=== PATIENT | female | born 1940 | race Caucasian/White ===

== ENCOUNTER 2021-10-02 15:10 | Inpatient (IN) ==
[2021-10-02] MEDS ORDERED: *HR* OxyCODONE/APAP 5/325 TABLET PO SCH (15:15)
[2021-10-02] MEDS ORDERED: Ipratropium/Albuterol Neb 3 ML IH PRN (15:56)
[2021-10-02] MEDS: Acetaminophen 325 MG TABLET PO PRN (18:03)
[2021-10-02] MEDS: Pyridostigmine Br 60 MG TABLET PO SCH ×2 (18:03→22:10)
[2021-10-02] MEDS: Apixaban 5 MG TABLET PO SCH (22:10)
[2021-10-02] MEDS: allopurinoL 100 MG TABLET PO SCH (22:11)
[2021-10-02] MEDS: Melatonin 3 MG TABLET PO SCH (22:11)
[2021-10-02] MEDS: *HR* OxyCODONE/APAP 5/325 TABLET PO PRN (22:11)
[2021-10-02] MEDS: polyethylene glycoL 3350 17 GM POWD.PACK PO PRN (22:57)
[2021-10-03] MEDS: Ondansetron ODT 4 MG TAB.RAPDIS SL PRN (04:25)
[2021-10-03] MEDS: *HR* OxyCODONE/APAP 5/325 TABLET PO PRN (05:51)
[2021-10-03 06:52] LABS: Basophils # 0.1 K/mcL (0.0-0.2); Basophils % 0.4 %; Eosinophils # 0.1 K/mcL (0.0-0.6); Eosinophils % 0.7 %; Hematocrit 39.2 % (35.3-44.9); Hemoglobin 12.7 g/dL (11.5-15.4); Immature Granulocytes % 0.3 % (0-4); Lymphocytes # 11.6 K/mcL (0.6-4.6); Lymphocytes % 60.5 %; Mean Corpuscular HGB Conc 32.4 g/dL (31.6-35.5); Mean Corpuscular Hemoglobin 31.4 pg (28.0-33.3); Mean Platelet Volume 9.7 fL (9.4-12.4); Monocytes # 0.5 K/mcL (0.0-1.3); Monocytes % 2.4 %; Neutrophils # 6.9 K/mcL (1.6-8.9); Platelet Count 227 K/mcL (140-400); Red Blood Count 4.04 M/mcL (3.82-4.97); Red Cell Distribution Width 13.4 % (11.5-14.5); Segmented Neutrophils % 35.7 %; White Blood Count 19.2 K/mcL (4.3-11.1)
[2021-10-03] MEDS: DilTIAZem CD (24hr) 120 MG CAP.ER.24H PO SCH (08:23)
[2021-10-03] MEDS: lisinopriL 10 MG TABLET PO SCH (08:24)
[2021-10-03] MEDS: allopurinoL 100 MG TABLET PO SCH ×2 (08:24→21:17)
[2021-10-03] MEDS: Cholecalciferol (D-3) 1,000 UNIT (25MCG) TABLET PO SCH (08:24)
[2021-10-03] MEDS: Cyanocobalamin (B-12) 1,000 MCG TABLET PO SCH (08:25)
[2021-10-03] MEDS: Apixaban 5 MG TABLET PO SCH ×2 (08:25→21:18)
[2021-10-03] MEDS: Pyridostigmine Br 60 MG TABLET PO SCH ×4 (08:25→21:18)
[2021-10-03] MEDS: Multivit/Ca/Min/Fe/FA 1 TAB TABLET PO SCH (08:25)
[2021-10-03 09:16] LABS: BUN/Creatinine Ratio 20 (6-26); Blood Urea Nitrogen 19 mg/dL (8-23); Carbon Dioxide 34 mEq/L (23-29); Chloride 93 mEq/L (98-107); Glucose 132 mg/dL (70-105); Magnesium 2.1 mg/dL (1.6-2.6); Osmolality,Calculated 280 (280-300); Potassium 4.7 mEq/L (3.5-5.1); Sodium 133 mEq/L (136-145); eGFR For African Americans > 60 (> 60); eGFR For Non-African Americans 56 (> 60)
[2021-10-03] MEDS: polyethylene glycoL 3350 17 GM POWD.PACK PO PRN (16:24)
[2021-10-03] MEDS ORDERED: Bisacodyl 10 MG RECTAL SUPPOSITORY RC PRN (19:33)
[2021-10-03] MEDS: Melatonin 3 MG TABLET PO SCH (21:17)
[2021-10-03] MEDS: diazePAM 5 MG TABLET PO PRN (21:18)
[2021-10-03] MEDS: Sennosides/Docusate Sodium TABLET PO SCH (21:18)
[2021-10-04] MEDS: *HR* OxyCODONE/APAP 5/325 TABLET PO PRN ×2 (05:44→23:24)
[2021-10-04] MEDS: Cholecalciferol (D-3) 1,000 UNIT (25MCG) TABLET PO SCH (08:00)
[2021-10-04] MEDS: Pyridostigmine Br 60 MG TABLET PO SCH ×4 (08:00→20:49)
[2021-10-04] MEDS: Sennosides/Docusate Sodium TABLET PO SCH ×2 (08:00→20:50)
[2021-10-04] MEDS: lisinopriL 10 MG TABLET PO SCH (08:00)
[2021-10-04] MEDS: Cyanocobalamin (B-12) 1,000 MCG TABLET PO SCH (08:00)
[2021-10-04] MEDS: allopurinoL 100 MG TABLET PO SCH ×2 (08:00→20:50)
[2021-10-04] MEDS: DilTIAZem CD (24hr) 120 MG CAP.ER.24H PO SCH (08:00)
[2021-10-04] MEDS: Multivit/Ca/Min/Fe/FA 1 TAB TABLET PO SCH (08:00)
[2021-10-04] MEDS: Apixaban 5 MG TABLET PO SCH ×2 (08:00→20:50)
[2021-10-04] MEDS: polyethylene glycoL 3350 17 GM POWD.PACK PO PRN (08:04)
[2021-10-04 15:20] LABS: ABG Base Excess 5 mEq/L (-2 to 3); ABG HCO3 31 mEq/L (21-27); ABG Oxygen Saturation 82 % (95-98); ABG PCO2 49 mmHg (35-45); ABG PO2 47 mmHg (85-104); ABG TCO2 32 mEq/L (20-26)
[2021-10-04] MEDS: acetaZOLAMIDE 250 MG TABLET PO SCH (20:50)
[2021-10-04] MEDS: Melatonin 3 MG TABLET PO SCH (20:50)
[2021-10-04] MEDS: Doxycycline 100 MG CAPSULE PO SCH (20:50)
[2021-10-04] MEDS: Ibuprofen 600 MG TABLET PO PRN (20:57)
[2021-10-05] MEDS: diazePAM 5 MG TABLET PO PRN ×2 (01:15→22:39)
[2021-10-05] MEDS: Acetaminophen 325 MG TABLET PO PRN (01:15)
[2021-10-05 05:57] LABS: Hematocrit 38.7 % (35.3-44.9); Hemoglobin 12.2 g/dL (11.5-15.4); Mean Corpuscular HGB Conc 31.5 g/dL (31.6-35.5); Mean Corpuscular Hemoglobin 31.1 pg (28.0-33.3); Mean Corpuscular Volume 98.7 fL (83.0-100.0); Platelet Count 251 K/mcL (140-400); Red Blood Count 3.92 M/mcL (3.82-4.97); Red Cell Distribution Width 13.5 % (11.5-14.5); White Blood Count 23.8 K/mcL (4.3-11.1)
[2021-10-05 06:14] LABS: Albumin 3.7 g/dL (3.5-5.7); Albumin/Globulin Ratio 1.5 (1.1-2.2); Bilirubin,Total 0.6 mg/dL (0.3-1.0); Calcium 8.7 mg/dL (8.6-10.3); Globulin 2.4 g/dL (2.4-3.5); Magnesium 2.2 mg/dL (1.6-2.6); Total Protein 6.1 g/dL (6.4-8.9)
[2021-10-05] MEDS: DilTIAZem CD (24hr) 120 MG CAP.ER.24H PO SCH (07:41)
[2021-10-05] MEDS: Ibuprofen 600 MG TABLET PO PRN ×3 (07:41→22:39)
[2021-10-05] MEDS: Doxycycline 100 MG CAPSULE PO SCH ×2 (07:41→21:19)
[2021-10-05] MEDS: lisinopriL 10 MG TABLET PO SCH (07:41)
[2021-10-05] MEDS: Apixaban 5 MG TABLET PO SCH ×2 (07:42→21:18)
[2021-10-05] MEDS: Cholecalciferol (D-3) 1,000 UNIT (25MCG) TABLET PO SCH (07:42)
[2021-10-05] MEDS: Multivit/Ca/Min/Fe/FA 1 TAB TABLET PO SCH (07:42)
[2021-10-05] MEDS: Cyanocobalamin (B-12) 1,000 MCG TABLET PO SCH (07:42)
[2021-10-05] MEDS: Pyridostigmine Br 60 MG TABLET PO SCH ×4 (07:42→21:19)
[2021-10-05] MEDS: allopurinoL 100 MG TABLET PO SCH ×2 (07:43→21:18)
[2021-10-05] MEDS: acetaZOLAMIDE 250 MG TABLET PO SCH ×2 (07:43→21:19)
[2021-10-05] MEDS: Sennosides/Docusate Sodium TABLET PO SCH ×2 (10:01→21:18)
[2021-10-05] MEDS: polyethylene glycoL 3350 17 GM POWD.PACK PO PRN (11:41)
[2021-10-05 15:51] LABS: Bilirubin,Urine Negative (Negative); Blood,Urine Trace-lysed (Negative); Clarity,Urine Cloudy (Clear); Color,Urine Yellow (Yellow); Glucose,Urine (UA) Normal (Normal); Ketones,Urine Negative (Negative); Leukocyte Esterase,Urine Large (Negative); Nitrite,Urine Negative (Negative); PH,Urine 8.5 pH Units (5.0-8.0); Protein,Urine Trace mg/dL (Neg-Trace); Specific Gravity,Urine 1.015 (1.010-1.025); Urobilinogen,Urine Normal (Normal)
[2021-10-05 15:53] LABS: Bacteria,Urine Moderate per hpf (None-Few); Squamous Epithelial Cell,Urine Moderate per hpf (None-Few); WBC,Urine 30-50 per hpf (0-3)
[2021-10-05] MEDS: *HR* OxyCODONE/APAP 5/325 TABLET PO PRN (21:18)
[2021-10-05] MEDS: Melatonin 3 MG TABLET PO SCH (21:19)
[2021-10-06 04:58] LABS: Hemoglobin 12.2 g/dL (11.5-15.4); Mean Corpuscular HGB Conc 31.3 g/dL (31.6-35.5); Mean Corpuscular Volume 99.2 fL (83.0-100.0); Mean Platelet Volume 9.9 fL (9.4-12.4); Platelet Count 260 K/mcL (140-400); Red Blood Count 3.93 M/mcL (3.82-4.97); Red Cell Distribution Width 13.4 % (11.5-14.5); White Blood Count 23.2 K/mcL (4.3-11.1)
[2021-10-06 05:18] LABS: Albumin 3.6 g/dL (3.5-5.7); Albumin/Globulin Ratio 1.6 (1.1-2.2); Bilirubin,Total 0.3 mg/dL (0.3-1.0); Calcium 8.7 mg/dL (8.6-10.3); Globulin 2.3 g/dL (2.4-3.5); Magnesium 2.3 mg/dL (1.6-2.6); Potassium 4.1 mEq/L (3.5-5.1); Total Protein 5.9 g/dL (6.4-8.9)
[2021-10-06] MEDS: Doxycycline 100 MG CAPSULE PO SCH ×2 (08:47→20:36)
[2021-10-06] MEDS: Sennosides/Docusate Sodium TABLET PO SCH ×2 (08:48→20:37)
[2021-10-06] MEDS: Pyridostigmine Br 60 MG TABLET PO SCH ×4 (08:48→20:36)
[2021-10-06] MEDS: lisinopriL 10 MG TABLET PO SCH (08:48)
[2021-10-06] MEDS: Apixaban 5 MG TABLET PO SCH ×2 (08:48→20:37)
[2021-10-06] MEDS: Multivit/Ca/Min/Fe/FA 1 TAB TABLET PO SCH (08:49)
[2021-10-06] MEDS: allopurinoL 100 MG TABLET PO SCH ×2 (08:49→20:36)
[2021-10-06] MEDS: DilTIAZem CD (24hr) 120 MG CAP.ER.24H PO SCH (08:49)
[2021-10-06] MEDS: acetaZOLAMIDE 250 MG TABLET PO SCH ×2 (08:49→20:37)
[2021-10-06] MEDS: Cholecalciferol (D-3) 1,000 UNIT (25MCG) TABLET PO SCH (08:52)
[2021-10-06] MEDS: Cyanocobalamin (B-12) 1,000 MCG TABLET PO SCH (08:52)
[2021-10-06] MEDS: Ibuprofen 600 MG TABLET PO PRN (15:05)
[2021-10-06] MEDS: *HR* OxyCODONE/APAP 5/325 TABLET PO PRN (19:25)
[2021-10-06] MEDS: Melatonin 3 MG TABLET PO SCH (20:36)
[2021-10-07] MEDS: diazePAM 5 MG TABLET PO PRN ×2 (02:30→21:27)
[2021-10-07] MEDS: Acetaminophen 325 MG TABLET PO PRN (08:43)
[2021-10-07] MEDS: Multivit/Ca/Min/Fe/FA 1 TAB TABLET PO SCH (08:43)
[2021-10-07] MEDS: Pyridostigmine Br 60 MG TABLET PO SCH ×4 (08:43→21:17)
[2021-10-07] MEDS: allopurinoL 100 MG TABLET PO SCH ×2 (08:43→21:18)
[2021-10-07] MEDS: Cholecalciferol (D-3) 1,000 UNIT (25MCG) TABLET PO SCH (08:43)
[2021-10-07] MEDS: Cyanocobalamin (B-12) 1,000 MCG TABLET PO SCH (08:43)
[2021-10-07] MEDS: Apixaban 5 MG TABLET PO SCH ×2 (08:43→21:18)
[2021-10-07] MEDS: Sennosides/Docusate Sodium TABLET PO SCH ×2 (08:43→21:18)
[2021-10-07] MEDS: Doxycycline 100 MG CAPSULE PO SCH ×2 (08:44→21:18)
[2021-10-07] MEDS: DilTIAZem CD (24hr) 120 MG CAP.ER.24H PO SCH (08:44)
[2021-10-07] MEDS: lisinopriL 10 MG TABLET PO SCH (08:44)
[2021-10-07] MEDS: acetaZOLAMIDE 250 MG TABLET PO SCH (08:44)
[2021-10-07] MEDS: *HR* OxyCODONE/APAP 5/325 TABLET PO PRN (17:05)
[2021-10-07] MEDS: Melatonin 3 MG TABLET PO SCH (21:17)
[2021-10-08 05:54] LABS: Hematocrit 36.5 % (35.3-44.9); Hemoglobin 11.8 g/dL (11.5-15.4); Mean Corpuscular HGB Conc 32.3 g/dL (31.6-35.5); Mean Corpuscular Hemoglobin 31.5 pg (28.0-33.3); Mean Corpuscular Volume 97.3 fL (83.0-100.0); Mean Platelet Volume 9.6 fL (9.4-12.4); Platelet Count 304 K/mcL (140-400); Red Blood Count 3.75 M/mcL (3.82-4.97); Red Cell Distribution Width 13.8 % (11.5-14.5); White Blood Count 24.3 K/mcL (4.3-11.1)
[2021-10-08 06:10] LABS: Albumin 3.5 g/dL (3.5-5.7); Albumin/Globulin Ratio 1.4 (1.1-2.2); Bilirubin,Total 0.5 mg/dL (0.3-1.0); Calcium 8.9 mg/dL (8.6-10.3); Globulin 2.5 g/dL (2.4-3.5); Magnesium 2.2 mg/dL (1.6-2.6)
[2021-10-08] MEDS: Multivit/Ca/Min/Fe/FA 1 TAB TABLET PO SCH (08:52)
[2021-10-08] MEDS: Doxycycline 100 MG CAPSULE PO SCH (08:52)
[2021-10-08] MEDS: Pyridostigmine Br 60 MG TABLET PO SCH ×4 (08:52→20:03)
[2021-10-08] MEDS: DilTIAZem CD (24hr) 120 MG CAP.ER.24H PO SCH (08:52)
[2021-10-08] MEDS: Sennosides/Docusate Sodium TABLET PO SCH ×2 (08:52→19:57)
[2021-10-08] MEDS: lisinopriL 10 MG TABLET PO SCH (08:52)
[2021-10-08] MEDS: Cholecalciferol (D-3) 1,000 UNIT (25MCG) TABLET PO SCH (08:52)
[2021-10-08] MEDS: Cyanocobalamin (B-12) 1,000 MCG TABLET PO SCH (08:52)
[2021-10-08] MEDS: allopurinoL 100 MG TABLET PO SCH ×2 (08:53→20:03)
[2021-10-08] MEDS: Apixaban 5 MG TABLET PO SCH ×2 (08:53→20:03)
[2021-10-08] MEDS: *HR* OxyCODONE/APAP 5/325 TABLET PO PRN ×2 (08:58→20:03)
[2021-10-08] MEDS: Nitrofurantoin (BID) 100 MG CAPSULE PO SCH (16:27)
[2021-10-08] MEDS: Cefdinir 300 MG CAPSULE PO SCH ×2 (16:27→20:03)
[2021-10-08] MEDS: Melatonin 3 MG TABLET PO SCH (20:03)
[2021-10-09] MEDS: Nitrofurantoin (BID) 100 MG CAPSULE PO SCH ×2 (08:55→16:29)
[2021-10-09] MEDS: lisinopriL 10 MG TABLET PO SCH (08:55)
[2021-10-09] MEDS: Cholecalciferol (D-3) 1,000 UNIT (25MCG) TABLET PO SCH (08:56)
[2021-10-09] MEDS: Multivit/Ca/Min/Fe/FA 1 TAB TABLET PO SCH (08:56)
[2021-10-09] MEDS: Cyanocobalamin (B-12) 1,000 MCG TABLET PO SCH (08:56)
[2021-10-09] MEDS: Apixaban 5 MG TABLET PO SCH ×2 (08:56→21:00)
[2021-10-09] MEDS: Pyridostigmine Br 60 MG TABLET PO SCH ×4 (08:56→21:00)
[2021-10-09] MEDS: DilTIAZem CD (24hr) 120 MG CAP.ER.24H PO SCH (08:56)
[2021-10-09] MEDS: Sennosides/Docusate Sodium TABLET PO SCH ×2 (08:56→21:00)
[2021-10-09] MEDS: *HR* OxyCODONE/APAP 5/325 TABLET PO PRN ×2 (08:56→21:00)
[2021-10-09] MEDS: Cefdinir 300 MG CAPSULE PO SCH ×2 (08:56→21:00)
[2021-10-09] MEDS: allopurinoL 100 MG TABLET PO SCH ×2 (08:56→21:00)
[2021-10-09] MEDS: Melatonin 3 MG TABLET PO SCH (21:00)
[2021-10-09] MEDS: Nystatin Cream 15 GM TUBE TP SCH (21:00)
[2021-10-09] MEDS: Ondansetron ODT 4 MG TAB.RAPDIS SL PRN (21:11)
[2021-10-10] MEDS: Nitrofurantoin (BID) 100 MG CAPSULE PO SCH ×2 (09:32→16:07)
[2021-10-10] MEDS: Apixaban 5 MG TABLET PO SCH ×2 (09:32→20:54)
[2021-10-10] MEDS: lisinopriL 10 MG TABLET PO SCH (09:32)
[2021-10-10] MEDS: Multivit/Ca/Min/Fe/FA 1 TAB TABLET PO SCH (09:33)
[2021-10-10] MEDS: Cholecalciferol (D-3) 1,000 UNIT (25MCG) TABLET PO SCH (09:33)
[2021-10-10] MEDS: Cefdinir 300 MG CAPSULE PO SCH ×2 (09:33→20:53)
[2021-10-10] MEDS: DilTIAZem CD (24hr) 120 MG CAP.ER.24H PO SCH (09:33)
[2021-10-10] MEDS: Pyridostigmine Br 60 MG TABLET PO SCH ×4 (09:33→20:54)
[2021-10-10] MEDS: Sennosides/Docusate Sodium TABLET PO SCH ×2 (09:34→20:54)
[2021-10-10] MEDS: allopurinoL 100 MG TABLET PO SCH ×2 (09:35→20:54)
[2021-10-10] MEDS: Cyanocobalamin (B-12) 1,000 MCG TABLET PO SCH (09:35)
[2021-10-10] MEDS: Nystatin Cream 15 GM TUBE TP SCH ×2 (09:35→20:55)
[2021-10-10] MEDS: Ondansetron ODT 4 MG TAB.RAPDIS SL PRN (11:18)
[2021-10-10] MEDS: Melatonin 3 MG TABLET PO SCH (20:53)
[2021-10-11] MEDS: *HR* OxyCODONE/APAP 5/325 TABLET PO PRN ×3 (03:13→21:45)
[2021-10-11] MEDS: lisinopriL 10 MG TABLET PO SCH (08:51)
[2021-10-11] MEDS: Cyanocobalamin (B-12) 1,000 MCG TABLET PO SCH (08:53)
[2021-10-11] MEDS: Multivit/Ca/Min/Fe/FA 1 TAB TABLET PO SCH (08:53)
[2021-10-11] MEDS: Nitrofurantoin (BID) 100 MG CAPSULE PO SCH ×2 (08:53→17:49)
[2021-10-11] MEDS: allopurinoL 100 MG TABLET PO SCH ×2 (08:53→21:44)
[2021-10-11] MEDS: Apixaban 5 MG TABLET PO SCH ×2 (08:53→21:44)
[2021-10-11] MEDS: Cefdinir 300 MG CAPSULE PO SCH ×2 (08:53→21:44)
[2021-10-11] MEDS: DilTIAZem CD (24hr) 120 MG CAP.ER.24H PO SCH (08:53)
[2021-10-11] MEDS: Pyridostigmine Br 60 MG TABLET PO SCH ×4 (08:53→21:45)
[2021-10-11] MEDS: Cholecalciferol (D-3) 1,000 UNIT (25MCG) TABLET PO SCH (08:53)
[2021-10-11] MEDS: Sennosides/Docusate Sodium TABLET PO SCH ×2 (08:55→21:44)
[2021-10-11] MEDS: Nystatin Cream 15 GM TUBE TP SCH ×2 (09:09→21:46)
[2021-10-11] MEDS ORDERED: Hydrocortisone 1% OINT 28 GM TUBE TP PRN (17:11)
[2021-10-11] MEDS: Fluconazole 100 MG TABLET PO SCH (17:49)
[2021-10-11] MEDS: Melatonin 3 MG TABLET PO SCH (21:44)
[2021-10-11] MEDS: diazePAM 5 MG TABLET PO PRN (21:45)
[2021-10-12 04:30] LABS: Hematocrit 35.8 % (35.3-44.9); Hemoglobin 11.4 g/dL (11.5-15.4); Mean Corpuscular HGB Conc 31.8 g/dL (31.6-35.5); Mean Corpuscular Hemoglobin 31.5 pg (28.0-33.3); Mean Corpuscular Volume 98.9 fL (83.0-100.0); Mean Platelet Volume 9.3 fL (9.4-12.4); Platelet Count 345 K/mcL (140-400); Red Blood Count 3.62 M/mcL (3.82-4.97); Red Cell Distribution Width 13.8 % (11.5-14.5)
[2021-10-12 04:49] LABS: Alanine Aminotransferase 9 Units/L (7-52); Albumin 3.5 g/dL (3.5-5.7); Albumin/Globulin Ratio 1.4 (1.1-2.2); Alkaline Phosphatase 54 Units/L (34-104); Aspartate Amino Transferase 11 Units/L (13-39); BUN/Creatinine Ratio 27 (6-26); Bilirubin,Total 0.3 mg/dL (0.3-1.0); Blood Urea Nitrogen 26 mg/dL (8-23); Calcium 8.9 mg/dL (8.6-10.3); Carbon Dioxide 29 mEq/L (23-29); Chloride 102 mEq/L (98-107); Globulin 2.5 g/dL (2.4-3.5); Glucose 98 mg/dL (70-105); Osmolality,Calculated 285 (280-300); Potassium 4.5 mEq/L (3.5-5.1); Sodium 135 mEq/L (136-145); eGFR For African Americans > 60 (> 60); eGFR For Non-African Americans 54 (> 60)
[2021-10-12] MEDS: Apixaban 5 MG TABLET PO SCH ×2 (08:27→20:58)
[2021-10-12] MEDS: Cholecalciferol (D-3) 1,000 UNIT (25MCG) TABLET PO SCH (08:27)
[2021-10-12] MEDS: Nitrofurantoin (BID) 100 MG CAPSULE PO SCH ×2 (08:27→18:11)
[2021-10-12] MEDS: lisinopriL 10 MG TABLET PO SCH (08:27)
[2021-10-12] MEDS: Pyridostigmine Br 60 MG TABLET PO SCH ×4 (08:27→20:59)
[2021-10-12] MEDS: allopurinoL 100 MG TABLET PO SCH ×2 (08:27→20:58)
[2021-10-12] MEDS: Sennosides/Docusate Sodium TABLET PO SCH ×2 (08:27→20:58)
[2021-10-12] MEDS: Cyanocobalamin (B-12) 1,000 MCG TABLET PO SCH (08:27)
[2021-10-12] MEDS: Cefdinir 300 MG CAPSULE PO SCH ×2 (08:27→20:58)
[2021-10-12] MEDS: DilTIAZem CD (24hr) 120 MG CAP.ER.24H PO SCH (08:27)
[2021-10-12] MEDS: Multivit/Ca/Min/Fe/FA 1 TAB TABLET PO SCH (08:27)
[2021-10-12] MEDS: Fluconazole 100 MG TABLET PO SCH (08:27)
[2021-10-12] MEDS: *HR* OxyCODONE/APAP 5/325 TABLET PO PRN ×2 (08:28→20:58)
[2021-10-12] MEDS: Nystatin Cream 15 GM TUBE TP SCH ×2 (08:36→21:03)
[2021-10-12] MEDS: polyethylene glycoL 3350 17 GM POWD.PACK PO PRN (14:30)
[2021-10-12] MEDS: diazePAM 5 MG TABLET PO PRN (20:58)
[2021-10-12] MEDS: Melatonin 3 MG TABLET PO SCH (20:58)
[2021-10-12] MEDS: Simethicone 80 MG TAB.CHEW PO PRN (20:58)
[2021-10-13] MEDS: Simethicone 80 MG TAB.CHEW PO PRN ×2 (06:22→15:52)
[2021-10-13] MEDS: Cyanocobalamin (B-12) 1,000 MCG TABLET PO SCH (08:28)
[2021-10-13] MEDS: Cholecalciferol (D-3) 1,000 UNIT (25MCG) TABLET PO SCH (08:28)
[2021-10-13] MEDS: Nitrofurantoin (BID) 100 MG CAPSULE PO SCH ×2 (08:29→15:51)
[2021-10-13] MEDS: Cefdinir 300 MG CAPSULE PO SCH ×2 (08:29→20:49)
[2021-10-13] MEDS: DilTIAZem CD (24hr) 120 MG CAP.ER.24H PO SCH (08:29)
[2021-10-13] MEDS: lisinopriL 10 MG TABLET PO SCH (08:29)
[2021-10-13] MEDS: allopurinoL 100 MG TABLET PO SCH ×2 (08:30→20:51)
[2021-10-13] MEDS: Apixaban 5 MG TABLET PO SCH ×2 (08:30→20:49)
[2021-10-13] MEDS: Multivit/Ca/Min/Fe/FA 1 TAB TABLET PO SCH (08:30)
[2021-10-13] MEDS: Fluconazole 100 MG TABLET PO SCH (08:31)
[2021-10-13] MEDS: Pyridostigmine Br 60 MG TABLET PO SCH ×4 (08:31→20:51)
[2021-10-13] MEDS: Sennosides/Docusate Sodium TABLET PO SCH ×2 (08:31→20:51)
[2021-10-13] MEDS: Nystatin Cream 15 GM TUBE TP SCH ×2 (08:32→20:54)
[2021-10-13 10:35] LABS: Basophils # 0.1 K/mcL (0.0-0.2); Basophils % 0.2 %; Eosinophils # 0.2 K/mcL (0.0-0.6); Eosinophils % 0.9 %; Hematocrit 37.7 % (35.3-44.9); Hemoglobin 12.4 g/dL (11.5-15.4); Immature Granulocytes % 0.5 % (0-4); Lymphocytes # 17.7 K/mcL (0.6-4.6); Lymphocytes % 68.2 %; Mean Corpuscular HGB Conc 32.9 g/dL (31.6-35.5); Mean Corpuscular Hemoglobin 31.9 pg (28.0-33.3); Mean Corpuscular Volume 96.9 fL (83.0-100.0); Mean Platelet Volume 9.9 fL (9.4-12.4); Monocytes # 0.7 K/mcL (0.0-1.3); Monocytes % 2.5 %; Neutrophils # 7.2 K/mcL (1.6-8.9); Platelet Count 231 K/mcL (140-400); Red Blood Count 3.89 M/mcL (3.82-4.97); Red Cell Distribution Width 13.6 % (11.5-14.5); Segmented Neutrophils % 27.7 %
[2021-10-13 10:49] LABS: BUN/Creatinine Ratio 23 (6-26); Blood Urea Nitrogen 21 mg/dL (8-23); Calcium 9.1 mg/dL (8.6-10.3); Carbon Dioxide 26 mEq/L (23-29); Chloride 101 mEq/L (98-107); Glucose 106 mg/dL (70-105); Osmolality,Calculated 279 (280-300); Potassium 4.7 mEq/L (3.5-5.1); Sodium 133 mEq/L (136-145); eGFR For African Americans > 60 (> 60); eGFR For Non-African Americans 58 (> 60)
[2021-10-13] MEDS: Acetaminophen 325 MG TABLET PO PRN (12:06)
[2021-10-13 19:33] VITALS: TEMP 97.9
[2021-10-13] MEDS: Melatonin 3 MG TABLET PO SCH (20:49)
[2021-10-13] MEDS: *HR* OxyCODONE/APAP 5/325 TABLET PO PRN (20:50)
[2021-10-13] MEDS: diazePAM 5 MG TABLET PO PRN (20:51)
[2021-10-14] MEDS: Simethicone 80 MG TAB.CHEW PO PRN (02:34)
[2021-10-14] MEDS: *HR* OxyCODONE/APAP 5/325 TABLET PO PRN ×2 (02:36→13:30)
[2021-10-14 06:44] VITALS: BP 113/70; PULSE 62; RESP 15; O2SAT 97
[2021-10-14] MEDS: Apixaban 5 MG TABLET PO SCH (08:57)
[2021-10-14] MEDS: DilTIAZem CD (24hr) 120 MG CAP.ER.24H PO SCH (08:57)
[2021-10-14] MEDS: lisinopriL 10 MG TABLET PO SCH (08:57)
[2021-10-14] MEDS: Cholecalciferol (D-3) 1,000 UNIT (25MCG) TABLET PO SCH (08:57)
[2021-10-14] MEDS: Cefdinir 300 MG CAPSULE PO SCH (08:57)
[2021-10-14] MEDS: Pyridostigmine Br 60 MG TABLET PO SCH ×3 (08:58→16:35)
[2021-10-14] MEDS: Nystatin Cream 15 GM TUBE TP SCH (08:58)
[2021-10-14] MEDS: Nitrofurantoin (BID) 100 MG CAPSULE PO SCH ×2 (08:58→16:35)
[2021-10-14] MEDS: Multivit/Ca/Min/Fe/FA 1 TAB TABLET PO SCH (08:58)
[2021-10-14] MEDS: Fluconazole 100 MG TABLET PO SCH (08:58)
[2021-10-14] MEDS: Sennosides/Docusate Sodium TABLET PO SCH (08:58)
[2021-10-14] MEDS: allopurinoL 100 MG TABLET PO SCH (08:58)
[2021-10-14] MEDS: Cyanocobalamin (B-12) 1,000 MCG TABLET PO SCH (08:59)
== END 2021-10-14 16:42 | disposition home health service (06) | DRG 193 ==
LOC: INPGRE 15:11
PROVIDERS: ADMIT Family Medicine; ATTEND Family Medicine

== ENCOUNTER 2022-03-24 15:11 | Inpatient (IN) ==
[2022-03-24] MEDS ORDERED: Hydrocortisone 1% OINT 28 GM TUBE TP PRN (18:12)
[2022-03-24] MEDS: Melatonin 3 MG TABLET PO SCH (21:12)
[2022-03-24] MEDS: allopurinoL 100 MG TABLET PO SCH (21:12)
[2022-03-24] MEDS: Apixaban 5 MG TABLET PO SCH (21:13)
[2022-03-24] MEDS: Pyridostigmine Br 60 MG TABLET PO SCH (21:13)
[2022-03-25 04:41] LABS: Basophils # 0.1 K/mcL (0.0-0.2); Basophils % 0.5 %; Eosinophils # 0.5 K/mcL (0.0-0.6); Hematocrit 39.7 % (35.3-44.9); Hemoglobin 12.7 g/dL (11.5-15.4); Immature Granulocytes % 0.3 % (0-4); Lymphocytes % 66.2 %; Mean Corpuscular Hemoglobin 31.6 pg (28.0-33.3); Mean Corpuscular Volume 98.8 fL (83.0-100.0); Mean Platelet Volume 9.7 fL (9.4-12.4); Monocytes % 9.6 %; Neutrophils # 5.5 K/mcL (1.6-8.9); Platelet Count 221 K/mcL (140-400); Red Blood Count 4.02 M/mcL (3.82-4.97); Red Cell Distribution Width 13.8 % (11.5-14.5); Segmented Neutrophils % 21.4 %; White Blood Count 25.5 K/mcL (4.3-11.1)
[2022-03-25 04:47] LABS: Lymphocytes # 16.9 K/mcL (0.6-4.6); Monocytes # 2.5 K/mcL (0.0-1.3)
[2022-03-25 04:48] LABS: Platelet Estimate Normal (Normal)
[2022-03-25 05:23] LABS: Albumin 3.9 g/dL (3.5-5.7); Albumin/Globulin Ratio 1.7 (1.1-2.2); Bilirubin,Total 0.4 mg/dL (0.3-1.0); Calcium 9.1 mg/dL (8.6-10.3); Globulin 2.3 g/dL (2.4-3.5); Total Protein 6.2 g/dL (6.4-8.9)
[2022-03-25] MEDS: Multivit/Ca/Min/Fe/FA 1 TAB TABLET PO SCH (09:10)
[2022-03-25] MEDS: Cholecalciferol (D-3) 1,000 UNIT (25MCG) TABLET PO SCH (09:10)
[2022-03-25] MEDS: Apixaban 5 MG TABLET PO SCH ×2 (09:10→20:00)
[2022-03-25] MEDS: DilTIAZem CD (24hr) 120 MG CAP.ER.24H PO SCH (09:10)
[2022-03-25] MEDS: allopurinoL 100 MG TABLET PO SCH ×2 (09:10→19:58)
[2022-03-25] MEDS: Cyanocobalamin (B-12) 1,000 MCG TABLET PO SCH (09:11)
[2022-03-25] MEDS: Pyridostigmine Br 60 MG TABLET PO SCH ×4 (09:11→19:58)
[2022-03-25] MEDS: lisinopriL 10 MG TABLET PO SCH (09:15)
[2022-03-25] MEDS ORDERED: Mag Hydrox/Al Hydrox/Simeth 30 ML UDC PO PRN (12:00)
[2022-03-25] MEDS: Melatonin 3 MG TABLET PO SCH (19:59)
[2022-03-25] MEDS: diazePAM 5 MG TABLET PO PRN (20:02)
[2022-03-26 04:59] LABS: Basophils % 0.6 %; Eosinophils # 0.6 K/mcL (0.0-0.6); Eosinophils % 2.3 %; Hemoglobin 12.5 g/dL (11.5-15.4); Immature Granulocytes % 0.2 % (0-4); Lymphocytes # 16.9 K/mcL (0.6-4.6); Lymphocytes % 68.4 %; Mean Corpuscular HGB Conc 31.3 g/dL (31.6-35.5); Mean Corpuscular Hemoglobin 31.2 pg (28.0-33.3); Mean Corpuscular Volume 99.8 fL (83.0-100.0); Mean Platelet Volume 10.1 fL (9.4-12.4); Monocytes % 7.9 %; Neutrophils # 5.1 K/mcL (1.6-8.9); Platelet Count 212 K/mcL (140-400); Red Blood Count 4.01 M/mcL (3.82-4.97); Red Cell Distribution Width 13.9 % (11.5-14.5); Segmented Neutrophils % 20.6 %; White Blood Count 24.7 K/mcL (4.3-11.1)
[2022-03-26 05:15] LABS: Calcium 8.9 mg/dL (8.6-10.3); Potassium 4.2 mEq/L (3.5-5.1)
[2022-03-26 05:39] LABS: Basophils # 0.2 K/mcL (0.0-0.2)
[2022-03-26] MEDS: DilTIAZem CD (24hr) 120 MG CAP.ER.24H PO SCH (08:06)
[2022-03-26] MEDS: Cholecalciferol (D-3) 1,000 UNIT (25MCG) TABLET PO SCH (08:06)
[2022-03-26] MEDS: Pyridostigmine Br 60 MG TABLET PO SCH ×4 (08:06→21:44)
[2022-03-26] MEDS: lisinopriL 10 MG TABLET PO SCH (08:06)
[2022-03-26] MEDS: Cyanocobalamin (B-12) 1,000 MCG TABLET PO SCH (08:06)
[2022-03-26] MEDS: allopurinoL 100 MG TABLET PO SCH ×2 (08:06→21:44)
[2022-03-26] MEDS: Multivit/Ca/Min/Fe/FA 1 TAB TABLET PO SCH (08:06)
[2022-03-26] MEDS: Acetaminophen 325 MG TABLET PO PRN (08:06)
[2022-03-26] MEDS: Apixaban 5 MG TABLET PO SCH ×2 (08:07→21:43)
[2022-03-26] MEDS: diazePAM 5 MG TABLET PO PRN ×2 (11:31→21:42)
[2022-03-26] MEDS: Melatonin 3 MG TABLET PO SCH (21:42)
[2022-03-27 05:23] LABS: Basophils # 0.1 K/mcL (0.0-0.2); Basophils % 0.4 %; Eosinophils # 0.6 K/mcL (0.0-0.6); Eosinophils % 2.3 %; Hematocrit 41.3 % (35.3-44.9); Immature Granulocytes % 0.2 % (0-4); Lymphocytes # 17.9 K/mcL (0.6-4.6); Lymphocytes % 66.2 %; Mean Corpuscular HGB Conc 31.5 g/dL (31.6-35.5); Mean Corpuscular Volume 98.6 fL (83.0-100.0); Mean Platelet Volume 10.2 fL (9.4-12.4); Monocytes # 2.3 K/mcL (0.0-1.3); Monocytes % 8.4 %; Neutrophils # 6.1 K/mcL (1.6-8.9); Platelet Count 235 K/mcL (140-400); Red Blood Count 4.19 M/mcL (3.82-4.97); Red Cell Distribution Width 13.9 % (11.5-14.5); Segmented Neutrophils % 22.5 %
[2022-03-27 05:32] LABS: Bilirubin,Urine Negative (Negative); Blood,Urine Negative (Negative); Clarity,Urine Clear (Clear); Color,Urine Yellow (Yellow); Glucose,Urine (UA) Normal (Normal); Ketones,Urine Negative (Negative); Leukocyte Esterase,Urine Moderate (Negative); Nitrite,Urine Negative (Negative); Protein,Urine Negative (Neg-Trace); Specific Gravity,Urine 1.015 (1.010-1.025); Urobilinogen,Urine Normal (Normal)
[2022-03-27 05:35] LABS: RBC,Urine 0-3 per hpf (0-3); Squamous Epithelial Cell,Urine Few per hpf (None-Few); WBC,Urine 15-30 per hpf (0-3)
[2022-03-27 05:36] LABS: Bacteria,Urine Few per hpf (None-Few)
[2022-03-27 05:40] LABS: Calcium 9.2 mg/dL (8.6-10.3); Potassium 4.1 mEq/L (3.5-5.1)
[2022-03-27] MEDS: DilTIAZem CD (24hr) 120 MG CAP.ER.24H PO SCH (08:18)
[2022-03-27] MEDS: Pyridostigmine Br 60 MG TABLET PO SCH ×4 (08:18→21:08)
[2022-03-27] MEDS: Acetaminophen 325 MG TABLET PO PRN (08:18)
[2022-03-27] MEDS: diazePAM 5 MG TABLET PO PRN ×2 (08:19→21:09)
[2022-03-27] MEDS: Cyanocobalamin (B-12) 1,000 MCG TABLET PO SCH (08:19)
[2022-03-27] MEDS: Apixaban 5 MG TABLET PO SCH ×2 (08:19→21:09)
[2022-03-27] MEDS: Cholecalciferol (D-3) 1,000 UNIT (25MCG) TABLET PO SCH (08:19)
[2022-03-27] MEDS: Multivit/Ca/Min/Fe/FA 1 TAB TABLET PO SCH (08:19)
[2022-03-27] MEDS: allopurinoL 100 MG TABLET PO SCH ×2 (08:19→21:09)
[2022-03-27] MEDS: lisinopriL 10 MG TABLET PO SCH (08:20)
[2022-03-27] MEDS: Artificial Tears SOLN 15 ML BOTTLE BOTH EYES SCH ×3 (13:56→21:09)
[2022-03-27] MEDS: Melatonin 3 MG TABLET PO SCH (21:08)
[2022-03-28] MEDS: Pyridostigmine Br 60 MG TABLET PO SCH ×4 (09:40→20:18)
[2022-03-28] MEDS: DilTIAZem CD (24hr) 120 MG CAP.ER.24H PO SCH (09:40)
[2022-03-28] MEDS: Apixaban 5 MG TABLET PO SCH ×2 (09:40→20:18)
[2022-03-28] MEDS: Cholecalciferol (D-3) 1,000 UNIT (25MCG) TABLET PO SCH (09:40)
[2022-03-28] MEDS: diazePAM 5 MG TABLET PO PRN ×2 (09:41→22:22)
[2022-03-28] MEDS: lisinopriL 10 MG TABLET PO SCH (09:41)
[2022-03-28] MEDS: allopurinoL 100 MG TABLET PO SCH ×2 (09:41→20:18)
[2022-03-28] MEDS: Cyanocobalamin (B-12) 1,000 MCG TABLET PO SCH (09:41)
[2022-03-28] MEDS: Multivit/Ca/Min/Fe/FA 1 TAB TABLET PO SCH (09:42)
[2022-03-28] MEDS: Acetaminophen 325 MG TABLET PO PRN (09:42)
[2022-03-28] MEDS: Artificial Tears SOLN 15 ML BOTTLE BOTH EYES SCH ×4 (09:42→20:23)
[2022-03-28] MEDS: cephALEXin 500 MG CAPSULE PO SCH ×2 (17:06→20:18)
[2022-03-28] MEDS: Melatonin 3 MG TABLET PO SCH (20:18)
[2022-03-29 04:28] LABS: Basophils # 0.1 K/mcL (0.0-0.2); Basophils % 0.4 %; Eosinophils # 0.5 K/mcL (0.0-0.6); Eosinophils % 2.2 %; Hematocrit 38.8 % (35.3-44.9); Hemoglobin 12.1 g/dL (11.5-15.4); Immature Granulocytes % 0.3 % (0-4); Lymphocytes # 15.8 K/mcL (0.6-4.6); Lymphocytes % 63.8 %; Mean Corpuscular HGB Conc 31.2 g/dL (31.6-35.5); Mean Corpuscular Hemoglobin 30.9 pg (28.0-33.3); Mean Platelet Volume 9.9 fL (9.4-12.4); Monocytes # 2.5 K/mcL (0.0-1.3); Monocytes % 10.3 %; Neutrophils # 5.7 K/mcL (1.6-8.9); Platelet Count 226 K/mcL (140-400); Red Blood Count 3.92 M/mcL (3.82-4.97); White Blood Count 24.7 K/mcL (4.3-11.1)
[2022-03-29 04:40] LABS: Platelet Estimate Normal (Normal)
[2022-03-29 04:42] LABS: Calcium 9.1 mg/dL (8.6-10.3); Potassium 4.3 mEq/L (3.5-5.1)
[2022-03-29] MEDS: Cyanocobalamin (B-12) 1,000 MCG TABLET PO SCH (09:55)
[2022-03-29] MEDS: Multivit/Ca/Min/Fe/FA 1 TAB TABLET PO SCH (09:55)
[2022-03-29] MEDS: cephALEXin 500 MG CAPSULE PO SCH ×3 (09:55→20:46)
[2022-03-29] MEDS: DilTIAZem CD (24hr) 120 MG CAP.ER.24H PO SCH (09:55)
[2022-03-29] MEDS: allopurinoL 100 MG TABLET PO SCH ×2 (09:55→20:46)
[2022-03-29] MEDS: Pyridostigmine Br 60 MG TABLET PO SCH ×4 (09:56→20:48)
[2022-03-29] MEDS: Apixaban 5 MG TABLET PO SCH ×2 (09:56→20:46)
[2022-03-29] MEDS: Cholecalciferol (D-3) 1,000 UNIT (25MCG) TABLET PO SCH (09:56)
[2022-03-29] MEDS: lisinopriL 10 MG TABLET PO SCH (09:56)
[2022-03-29] MEDS: diazePAM 5 MG TABLET PO PRN ×2 (09:57→20:50)
[2022-03-29] MEDS: Artificial Tears SOLN 15 ML BOTTLE BOTH EYES SCH ×4 (09:57→20:51)
[2022-03-29] MEDS ORDERED: polyethylene glycoL 3350 17 GM POWD.PACK PO ONE (12:00)
[2022-03-29] MEDS: Melatonin 3 MG TABLET PO SCH (20:47)
[2022-03-30] MEDS: Apixaban 5 MG TABLET PO SCH ×2 (08:23→21:04)
[2022-03-30] MEDS: Acetaminophen 325 MG TABLET PO PRN ×2 (08:23→16:42)
[2022-03-30] MEDS: lisinopriL 10 MG TABLET PO SCH (08:23)
[2022-03-30] MEDS: Cholecalciferol (D-3) 1,000 UNIT (25MCG) TABLET PO SCH (08:23)
[2022-03-30] MEDS: cephALEXin 500 MG CAPSULE PO SCH ×3 (08:23→21:04)
[2022-03-30] MEDS: Pyridostigmine Br 60 MG TABLET PO SCH ×4 (08:24→21:04)
[2022-03-30] MEDS: Artificial Tears SOLN 15 ML BOTTLE BOTH EYES SCH ×4 (08:24→21:11)
[2022-03-30] MEDS: Cyanocobalamin (B-12) 1,000 MCG TABLET PO SCH (08:24)
[2022-03-30] MEDS: allopurinoL 100 MG TABLET PO SCH ×2 (08:24→21:03)
[2022-03-30] MEDS: Multivit/Ca/Min/Fe/FA 1 TAB TABLET PO SCH (08:24)
[2022-03-30] MEDS: DilTIAZem CD (24hr) 120 MG CAP.ER.24H PO SCH (08:24)
[2022-03-30] MEDS: diazePAM 5 MG TABLET PO PRN ×2 (08:28→21:03)
[2022-03-30] MEDS ORDERED: Fluconazole 150 MG TABLET PO ONE (14:45)
[2022-03-30] MEDS: Melatonin 3 MG TABLET PO SCH (21:02)
[2022-03-30] MEDS: Sennosides/Docusate Sodium TABLET PO PRN (21:03)
[2022-03-30] MEDS ORDERED: Menthol 1 EACH LOZENGE PO PRN (21:55)
[2022-03-31 08:01] VITALS: BP 122/73; PULSE 58; RESP 16; TEMP 97.6; O2SAT 96
[2022-03-31] MEDS: Sennosides/Docusate Sodium TABLET PO PRN (08:03)
[2022-03-31] MEDS: allopurinoL 100 MG TABLET PO SCH (08:03)
[2022-03-31] MEDS: cephALEXin 500 MG CAPSULE PO SCH ×2 (08:03→16:14)
[2022-03-31] MEDS: Apixaban 5 MG TABLET PO SCH (08:03)
[2022-03-31] MEDS: Cholecalciferol (D-3) 1,000 UNIT (25MCG) TABLET PO SCH (08:03)
[2022-03-31] MEDS: Multivit/Ca/Min/Fe/FA 1 TAB TABLET PO SCH (08:03)
[2022-03-31] MEDS: Acetaminophen 325 MG TABLET PO PRN (08:03)
[2022-03-31] MEDS: lisinopriL 10 MG TABLET PO SCH (08:03)
[2022-03-31] MEDS: Artificial Tears SOLN 15 ML BOTTLE BOTH EYES SCH ×2 (08:04→16:14)
[2022-03-31] MEDS: diazePAM 5 MG TABLET PO PRN (08:04)
[2022-03-31] MEDS: Cyanocobalamin (B-12) 1,000 MCG TABLET PO SCH (08:04)
[2022-03-31] MEDS: Pyridostigmine Br 60 MG TABLET PO SCH ×3 (08:04→16:15)
[2022-03-31] MEDS: DilTIAZem CD (24hr) 120 MG CAP.ER.24H PO SCH (08:04)
== END 2022-03-31 16:20 | disposition home health service (06) | DRG 559 ==
LOC: SUATTDRO 16:07 → INPGRE 16:07
PROVIDERS: ADMIT Internal Medicine; ATTEND Family Medicine